=== PATIENT | female | born 1965 | race Caucasian/White ===

== ENCOUNTER → 2020-11-08 | Outpatient (CLI) | payer OTHER ==
[~2020-11-08] MED LIST: AMLODIPINE-BEN1 EACH PO; CITALOPRAM HBR40 MG PO; COLACE 100MG C100 MG PO; HYDROCHLOROTHIA25 MG PO; IBUPROFEN600 MG PO; LOTREL 5-20 MG1 EACH PO; MAGNESIUM250 M1 PO; NORCO 10-325 T1 EACH PO; POTASSIUM99 M1 PO; STELARA90 MG/1 ML SQ; SYNTHROID88 MCG PO; TIROSINT88 MCG PO
== END ==
LOC: US 11-02 13:30
DX: I10 Essential (primary) hypertension (principal)

== ENCOUNTER → 2021-02-18 | Outpatient (CLI) | payer OTHER | LOC: RAD 08:03 | DX: M17.0 Bilateral primary osteoarthritis of knee (principal) | CPT/HCPCS: 73565 ==

== ENCOUNTER → 2021-04-09 | Outpatient (CLI) | payer OTHER | LOC: EXRD 08:45 | DX: R09.89 Other specified symptoms and signs involving the circulatory and respiratory systems (principal); I10 Essential (primary) hypertension; I34.0 Nonrheumatic mitral (valve) insufficiency | CPT/HCPCS: 93306; 93930 ==

== ENCOUNTER → 2021-07-10 | Outpatient (CLI) | payer OTHER | LOC: KOH-I 09:17 | DX: M79.675 Pain in left toe(s) (principal); M19.072 Primary osteoarthritis, left ankle and foot | CPT/HCPCS: 73660 ==

== ENCOUNTER → 2021-10-24 | Outpatient (CLI) | payer OTHER | LOC: HEART 5 13:59 | DX: R09.89 Other specified symptoms and signs involving the circulatory and respiratory systems (principal) ==

== ENCOUNTER → 2021-12-13 | Outpatient (CLI) | payer OTHER | LOC: CT 12-09 13:00 | DX: I10 Essential (primary) hypertension (principal); R10.32 Left lower quadrant pain; Z90.710 Acquired absence of both cervix and uterus | CPT/HCPCS: 36415; 82565; 84520; Q9967 ==

== ENCOUNTER 2022-02-05 10:06 | Emergency (ER) | payer OTHER ==
[2022-02-05 11:03] LABS: HEMOGLOBIN 14.3 gm/dl (12.3-15.3); RED BLOOD COUNT 5.49 M/UL (4.00-5.10); WHITE BLOOD COUNT 10.5 K/UL (4.5-11.0)
[2022-02-05 11:34] LABS: BUN/CREATININE RATIO 12 (0-10)
[2022-02-05] MEDS ORDERED: BUTALB-ACETAMI1 EACH PO (15:08)
[2022-02-05] MEDS ORDERED: BUTALB-ACETAMI1 EAC1 PO (16:53)
== END 2022-02-05 15:45 | disposition home or self-care (01) ==
LOC: ER1 10:06
PROVIDERS: Emergency Medicine
DX: R42 Dizziness and giddiness (principal); R51.9 Headache, unspecified; I10 Essential (primary) hypertension
CPT/HCPCS: 70450; 70496; 70498; 80053; 81001; 82550; 82553; 84484; 85025; 85610; 85730; 87086; 93005; 99284; Q9967

== ENCOUNTER → 2022-02-10 | Outpatient (CLI) | payer OTHER ==
[~2022-02-10] MED LIST changes: +BUTALB-ACETAMI1 EAC1 PO; +BUTALB-ACETAMI1 EACH PO
== END ==
LOC: EMI 02-07 13:45
DX: R27.0 Ataxia, unspecified (principal); G44.89 Other headache syndrome; G43.009 Migraine without aura, not intractable, without status migrainosus
CPT/HCPCS: 70551